=== PATIENT | female | born 1960 | race Caucasian/White ===

== ENCOUNTER 2016-10-31 02:00 | Emergency (ER) | payer MEDICAID ==
[2016-10-31 03:06] LABS: CALCIUM 7.9 mg/dL (8.5-10.1); CARBON DIOXIDE 27.1 mmol/L (21-32); CHLORIDE SERUM 103 mmol/L (98-107); CREATININE SERUM 0.6 mg/dL (0.6-1.0); GFR1 > 60 mL/min; GLUCOSE SERUM 114 mg/dL (74-106); POTASSIUM SERUM 4.2 mmol/L (3.5-5.1); SODIUM SERUM 136 mmol/L (136-145)
[2016-10-31 03:10] LABS: ALKALINE PHOSPHATASE 91 U/L (46-116); ALT/SGPT 15 U/L (14-59); AMYLASE 28 U/L (25-115); AST/SGOT 15 U/L (15-37); BILIRUBIN TOTAL 0.25 mg/dL (0.20-1.00); LIPASE 142 IU/L (73-393); TOTAL PROTEIN, SERUM 6.3 g/dL (6.4-8.2)
[2016-10-31 03:11] LABS: ALBUMIN 2.4 g/dL (3.4-5.0)
[2016-10-31 03:28] LABS: BASOPHIL % 0.3 % (0-2); PLATELET COUNT 257 x10^3mcL (130-400); RED CELL DISTRIBUTION WIDTH 14.6 % (11.5-14.5)
[2016-10-31 04:39] VITALS: BP 130/98
== END 2016-10-31 04:39 | disposition home or self-care (01) ==
LOC: ED 02:00
PROVIDERS: Emergency Medicine
DX: R10.9 Unspecified abdominal pain (principal); R11.10 Vomiting, unspecified; K21.9 Gastro-esophageal reflux disease without esophagitis
CPT/HCPCS: Q0092; Q0162

== ENCOUNTER 2017-02-07 08:48 | Inpatient (IN) | payer MEDICAID ==
[2017-02-07] VITALS (8 sets, daily range): BP systolic 32–134; BP diastolic 40–83
[~2017-02-07] VITALS: Ht 154.9 cm; Wt 65.8 kg
[2017-02-07 09:44] LABS: CALCIUM 8.6 mg/dL (8.5-10.1); CARBON DIOXIDE 24.7 mmol/L (21-32); CREATININE SERUM 1.2 mg/dL (0.6-1.0); POTASSIUM SERUM 3.8 mmol/L (3.5-5.1)
[2017-02-07 09:49] LABS: BILIRUBIN TOTAL 0.31 mg/dL (0.20-1.00); TOTAL PROTEIN, SERUM 7.9 g/dL (6.4-8.2)
[2017-02-07 09:50] LABS: ALBUMIN 3.3 g/dL (3.4-5.0)
[2017-02-07 11:05] LABS: PLATELET COUNT 329 x10^3mcL (130-400)
[2017-02-07 11:06] LABS: RED CELL DISTRIBUTION WIDTH 19.8 % (11.5-14.5)
[2017-02-07 11:23] LABS: BAND NEUTROPHIL 24 % (0-10); BASOPHIL 0 % (0-2); MONOCYTE 2 % (0-7); SEGMENTED NEUTROPHILS 70 % (37-75)
[2017-02-07 11:24] LABS: PLATELET MORPHOLOGY PLATELETS INCREASED; rbc morphology (normal/abnorm) ABNORMAL (NORMAL)
[2017-02-07] MEDS ORDERED: DEXILANT30 M1 PO (11:58)
[2017-02-07] MEDS ORDERED: NEXIUM20 MG (11:59)
[2017-02-07 13:19] LABS: ALBUMIN 3.4 g/dL (3.4-5.0); CHOLESTEROL/HDL RATIO 1.9; MAGNESIUM 2.1 mg/dL (1.8-2.4); PHOSPHOROUS 4.8 mg/dL (2.5-4.9)
[2017-02-07 13:23] LABS: T3 TOTAL 0.73 ng/mL
[2017-02-07 13:29] LABS: FREE T4 1.26 ng/dL (0.76-1.46); FREE THYROXINE INDEX 3.6 ug/dL (1.4-4.5); T4(THYROXINE) 9.4 ug/dL (4.7-13.3)
[2017-02-08] VITALS (13 sets, daily range): BP systolic 98–123; BP diastolic 58–79; Ht 154.9 cm; Wt 65.8 kg
[2017-02-08 03:14] LABS: UA SPECIFIC GRAVITY 1.025 (1.005-1.035); microscopic required? YES; urine erythrocyte TRACE (NEGATIVE)
[2017-02-08 03:35] LABS: AMPHETAMINE QUAL UR POSITIVE (NEG <=1000)
[2017-02-08 05:18] LABS: PLATELET COUNT 251 x10^3mcL (130-400)
[2017-02-08 05:21] LABS: RED CELL DISTRIBUTION WIDTH 20.3 % (11.5-14.5)
[2017-02-08 05:27] LABS: CALCIUM 7.6 mg/dL (8.5-10.1); CARBON DIOXIDE 19.3 mmol/L (21-32); CREATININE SERUM 1.1 mg/dL (0.6-1.0); MAGNESIUM 1.8 mg/dL (1.8-2.4); PHOSPHOROUS 3.9 mg/dL (2.5-4.9); POTASSIUM SERUM 4.5 mmol/L (3.5-5.1)
[2017-02-08 05:42] LABS: BAND NEUTROPHIL 27 % (0-10); METAMYELOCTE 4 % (0-2); MONOCYTE 3 % (0-7); SEGMENTED NEUTROPHILS 57 % (37-75)
[2017-02-08 05:44] LABS: rbc morphology (normal/abnorm) ABNORMAL (NORMAL)
[2017-02-08 05:45] LABS: PLATELET MORPHOLOGY LARGE PLATELET SEEN
[2017-02-09 03:17] VITALS: BP 105/59
[2017-02-09 04:00] VITALS: BP 99/56
[2017-02-09 06:42] LABS: CALCIUM 7.7 mg/dL (8.5-10.1); CARBON DIOXIDE 25.8 mmol/L (21-32); CHLORIDE SERUM 109 mmol/L (98-107); CREATININE SERUM 0.8 mg/dL (0.6-1.0); GFR1 > 60 mL/min; GLUCOSE SERUM 96 mg/dL (74-106); PHOSPHOROUS 3.1 mg/dL (2.5-4.9); PLATELET COUNT 200 x10^3mcL (130-400); POTASSIUM SERUM 4.3 mmol/L (3.5-5.1); SODIUM SERUM 139 mmol/L (136-145)
[2017-02-09 06:50] LABS: BASOPHIL % 0 % (0-2); RED CELL DISTRIBUTION WIDTH 20.2 % (11.5-14.5)
[2017-02-09 06:51] LABS: rbc morphology (normal/abnorm) ABNORMAL (NORMAL)
[2017-02-09 08:40] VITALS: BP 103/52
[2017-02-09 12:15] VITALS: BP 107/46
[2017-02-09 17:09] VITALS: BP 106/55
[2017-02-09 21:11] VITALS: BP 104/50
[2017-02-10 05:35] VITALS: BP 114/65; BP 14/65
[2017-02-10 06:24] LABS: PLATELET COUNT 207 x10^3mcL (130-400)
[2017-02-10 06:29] LABS: BASOPHIL % 0 % (0-2); RED CELL DISTRIBUTION WIDTH 20.7 % (11.5-14.5)
[2017-02-10 06:53] LABS: CALCIUM 7.7 mg/dL (8.5-10.1); CHLORIDE SERUM 110 mmol/L (98-107); CREATININE SERUM 0.6 mg/dL (0.6-1.0); GFR1 > 60 mL/min; GLUCOSE SERUM 105 mg/dL (74-106); MAGNESIUM 2.1 mg/dL (1.8-2.4); PHOSPHOROUS 2.7 mg/dL (2.5-4.9); POTASSIUM SERUM 3.8 mmol/L (3.5-5.1); SODIUM SERUM 143 mmol/L (136-145)
[2017-02-10 07:45] LABS: rbc morphology (normal/abnorm) ABNORMAL (NORMAL); target cell (codocyte) 1+; tear drop cell (dacryocyte) 1+
[2017-02-10 09:21] VITALS: BP 125/54
[2017-02-10 14:05] VITALS: BP 141/52
[2017-02-10 17:21] VITALS: BP 100/40
[2017-02-10 21:48] VITALS: BP 107/49
[2017-02-11 06:24] VITALS: BP 104/57
[2017-02-11 06:26] LABS: CALCIUM 8.2 mg/dL (8.5-10.1); CHLORIDE SERUM 109 mmol/L (98-107); CREATININE SERUM 0.6 mg/dL (0.6-1.0); GFR1 > 60 mL/min; GLUCOSE SERUM 102 mg/dL (74-106); MAGNESIUM 2.1 mg/dL (1.8-2.4); POTASSIUM SERUM 3.6 mmol/L (3.5-5.1); SODIUM SERUM 143 mmol/L (136-145)
[2017-02-11 06:35] LABS: BASOPHIL % 0.2 % (0-2); PLATELET COUNT 231 x10^3mcL (130-400)
[2017-02-11 06:57] LABS: RED CELL DISTRIBUTION WIDTH 20.6 % (11.5-14.5)
[2017-02-11 06:58] LABS: rbc morphology (normal/abnorm) ABNORMAL (NORMAL); target cell (codocyte) 1+; tear drop cell (dacryocyte) 1+
[2017-02-11 09:30] VITALS: BP 97/55
[2017-02-11 18:40] VITALS: BP 117/66
[2017-02-11 22:07] VITALS: BP 124/54
[2017-02-12 06:04] VITALS: BP 135/60
[2017-02-12 06:45] LABS: BASOPHIL % 0.5 % (0-2); PLATELET COUNT 253 x10^3mcL (130-400)
[2017-02-12 07:09] LABS: RED CELL DISTRIBUTION WIDTH 20.5 % (11.5-14.5)
[2017-02-12 07:18] LABS: CALCIUM 8.4 mg/dL (8.5-10.1); CARBON DIOXIDE 25.5 mmol/L (21-32); CHLORIDE SERUM 108 mmol/L (98-107); CREATININE SERUM 0.5 mg/dL (0.6-1.0); GFR1 > 60 mL/min; GLUCOSE SERUM 88 mg/dL (74-106); MAGNESIUM 1.9 mg/dL (1.8-2.4); PHOSPHOROUS 3.7 mg/dL (2.5-4.9); POTASSIUM SERUM 3.6 mmol/L (3.5-5.1); SODIUM SERUM 143 mmol/L (136-145)
[2017-02-12 09:26] VITALS: BP 132/70
[2017-02-12 13:55] VITALS: BP 132/70
[2017-02-12 17:44] VITALS: BP 124/72
[2017-02-12 21:36] VITALS: BP 136/80
[2017-02-13 05:49] VITALS: BP 131/72
[2017-02-13 09:16] VITALS: BP 136/75
[2017-02-13] MEDS ORDERED: CIPRO500 MG PO (15:38)
[2017-02-13] MEDS ORDERED: PEPCID20 MG PO (15:44)
[2017-02-13 15:58] VITALS: BP 136/75
[2017-02-13] MEDS ORDERED: APAP/HYDROCODON1 T13 PO (16:06)
[2017-02-13 17:05] VITALS: BP 118/70
== END 2017-02-13 18:02 | disposition home or self-care (01) | DRG 710 ==
LOC: ED 08:48 → IC 11:47 → DU 11:47 → IC 19:24 → DU 02-09 03:59 → MU 02-11 00:14
PROVIDERS: Emergency Medicine; Family Medicine Addiction Medicine; ADMIT Family Medicine
PROC: 0DU907Z Supplement Duodenum with Autologous Tissue Substitute, Open Approach (ICD-10-PCS; principal; 2017-02-07 14:30)
DX: A41.9 Sepsis, unspecified organism (principal); N17.0 Acute kidney failure with tubular necrosis; J96.00 Acute respiratory failure, unspecified whether with hypoxia or hypercapnia; K26.5 Chronic or unspecified duodenal ulcer with perforation; E44.0 Moderate protein-calorie malnutrition; F15.10 Other stimulant abuse, uncomplicated; D50.9 Iron deficiency anemia, unspecified; E87.8 Other disorders of electrolyte and fluid balance, not elsewhere classified; K21.9 Gastro-esophageal reflux disease without esophagitis; K57.30 Diverticulosis of large intestine without perforation or abscess without bleeding; E83.51 Hypocalcemia; J44.9 Chronic obstructive pulmonary disease, unspecified; N63 Unspecified lump in breast; Z68.27 Body mass index [BMI] 27.0-27.9, adult; R65.20 Severe sepsis without septic shock
CPT/HCPCS: 36600; 82962; 83880; 84439; A4628; A9698; J0330; J0690; J0696; J1170; J1644; J1885; J1956; J2250; J2270; J2405; J2543; J2704; J3010; J3490; J7030; J7050; J7120; J7620; Q0092; Q9967

== ENCOUNTER → 2017-03-18 | Outpatient (CLI) | payer MEDICAID ==
[~2017-03-18] MED LIST: APAP/HYDROCODON1 T13 PO; CIPRO500 MG PO; DEXILANT30 M1 PO; NEXIUM20 MG; PEPCID20 MG PO
== END | disposition home or self-care (01) ==
LOC: RD 14:37
DX: R06.02 Shortness of breath (principal)

== ENCOUNTER → 2017-03-31 | Outpatient (CLI) | payer MEDICAID | END | disposition home or self-care (01) | LOC: MA 13:18 | PROC: BH02ZZZ Plain Radiography of Bilateral Breasts (ICD-10-PCS; principal; 2017-03-31) | DX: N63 Unspecified lump in breast (principal) | CPT/HCPCS: G0204 ==

== ENCOUNTER → 2017-04-26 | Outpatient (CLI) | payer MEDICAID ==
[2017-04-26 17:58] LABS: ALBUMIN 3.6 g/dL (3.4-5.0); ALKALINE PHOSPHATASE 136 U/L (46-116); ALT/SGPT 47 U/L (14-59); AST/SGOT 30 U/L (15-37); BILIRUBIN TOTAL 0.34 mg/dL (0.20-1.00); CALCIUM 8.7 mg/dL (8.5-10.1); CARBON DIOXIDE 30.4 mmol/L (21-32); CHLORIDE SERUM 106 mmol/L (98-107); CREATININE SERUM 0.7 mg/dL (0.6-1.0); GFR1 > 60 mL/min; GLUCOSE SERUM 91 mg/dL (74-106); POTASSIUM SERUM 4.3 mmol/L (3.5-5.1); SODIUM SERUM 140 mmol/L (136-145)
== END | disposition home or self-care (01) ==
LOC: CT 17:25
PROVIDERS: Family Medicine
PROC: BW251ZZ Computerized Tomography (CT Scan) of Chest, Abdomen and Pelvis using Low Osmolar Contrast (ICD-10-PCS; principal; 2017-04-26)
DX: R10.9 Unspecified abdominal pain (principal); R13.10 Dysphagia, unspecified
CPT/HCPCS: Q9967

== ENCOUNTER → 2017-10-24 | Outpatient (CLI) | payer MEDICAID | END | disposition home or self-care (01) | LOC: RD 13:25 | DX: M79.673 Pain in unspecified foot (principal); M25.519 Pain in unspecified shoulder ==

== ENCOUNTER 2018-06-05 10:18 | Emergency (ER) | payer MEDICAID ==
[~2018-06-05] VITALS: Ht 160 cm; Wt 83.5 kg
[2018-06-05 10:34] VITALS: BP 118/58; Ht 160 cm; Wt 83.5 kg
== END 2018-06-05 13:01 | disposition home or self-care (01) ==
LOC: ED 10:18
DX: J06.9 Acute upper respiratory infection, unspecified (principal); F17.210 Nicotine dependence, cigarettes, uncomplicated; K21.9 Gastro-esophageal reflux disease without esophagitis; M25.512 Pain in left shoulder
CPT/HCPCS: Q0092

== ENCOUNTER 2020-01-26 00:44 | Emergency (ER) | payer MEDICAID ==
[~2020-01-26] VITALS: Ht 160 cm; Wt 92.5 kg
[2020-01-26 00:54] VITALS: Ht 160 cm; Wt 92.5 kg
[2020-01-26 02:37] VITALS: BP 114/71
== END 2020-01-26 02:37 | disposition home or self-care (01) ==
LOC: ED 00:44
DX: L03.114 Cellulitis of left upper limb (principal); K21.9 Gastro-esophageal reflux disease without esophagitis
CPT/HCPCS: 90715